=== PATIENT | male | born 1955 | race Caucasian/White ===

== ENCOUNTER 2020-07-11 23:34 | Emergency (ER) | payer OTHER ==
[~2020-07-11] VITALS: Ht 188 cm; Wt 79.4 kg
[2020-07-11 23:47] VITALS: BP 155/88
--- NOTE | 2020-07-12 00:23 | NUR ---
PATIENT TAKEN TO XRAY VIA W/C.
[2020-07-12] MEDS ORDERED: ALBUTEROL HFA MDI 90 MCG/ACTUATION 8 GM INH ONE (00:25)
[2020-07-12] MEDS ORDERED: DEXAMETHASONE 4 MG/ML VIAL IM ONE (00:25)
[2020-07-12 00:45] VITALS: BP 155/88
--- NOTE | 2020-07-12 01:29 | NUR ---
INFLUENZA AND COVID ANTIGEN COLLECTED. SPECIMENS TAKEN TO LAB.
--- NOTE | 2020-07-12 02:51 | NUR ---
Patient discharged with v/s stable. Written and verbal after care instructions given and explained. Patient alert, oriented and verbalized understanding of instructions. Ambulatory with steady gait. All questions addressed prior to discharge. ID band removed. Patient advised to follow up with PMD. Rx of ALBUTEROL AND PREDNISONE given. Patient educated on indication of medication including possible reaction and side effects. Opportunity to ask questions provided and answered.
== END 2020-07-12 02:51 | disposition home or self-care (01) ==
LOC: MED 23:34
DX: R05 Cough (principal); Z20.828 Contact with and (suspected) exposure to other viral communicable diseases; F17.210 Nicotine dependence, cigarettes, uncomplicated; Z71.6 Tobacco abuse counseling
CPT/HCPCS: 71045; 87426; 87804; 96372; 99284; J1100; J3535